=== PATIENT | female | born 1945 | race Caucasian/White ===

== ENCOUNTER → 2017-01-07 | Outpatient (CLI) | payer OTHER | LOC: FIMAGING 07:55 | PROVIDERS: ATTEND Obstetrics & Gynecology | DX: Z12.31 Encounter for screening mammogram for malignant neoplasm of breast (principal) | CPT/HCPCS: G0202 ==

== ENCOUNTER → 2018-01-15 | Outpatient (CLI) | payer OTHER | LOC: FIMAGING 07:07 | PROVIDERS: ATTEND Internal Medicine | DX: Z12.31 Encounter for screening mammogram for malignant neoplasm of breast (principal); Z80.3 Family history of malignant neoplasm of breast ==

== ENCOUNTER → 2018-06-19 | Outpatient (CLI) | payer OTHER | LOC: FIMAGING 18:54 | PROVIDERS: ATTEND Internal Medicine | DX: R41.3 Other amnesia (principal) | CPT/HCPCS: 70551-PN ==

== ENCOUNTER → 2018-07-03 | Outpatient (CLI) | payer OTHER ==
[~2018-07-03] MED LIST: GADOBUTROL 10 ML VIAL IVP ONE
== END ==
LOC: FIMAGING 06:37
PROVIDERS: ATTEND Internal Medicine
DX: R93.0 Abnormal findings on diagnostic imaging of skull and head, not elsewhere classified (principal); F03.90 Unspecified dementia, unspecified severity, without behavioral disturbance, psychotic disturbance, mood disturbance, and anxiety; R41.3 Other amnesia
CPT/HCPCS: 70553; A9585

== ENCOUNTER → 2018-08-18 | Outpatient (CLI) | payer OTHER ==
--- NOTE | 2018-08-19 12:52 | CPEEG ---
[f rep st] ELECTROENCEPHALOGRAM DATE OF STUDY: 08/18/2018 DATE OF INTERPRETATION: August 19, 2018 INTERPRETATION: This 4-hour video EEG recording is abnormal due to the following reasons: 1. There were probable, rare potentially epileptogenic abnormalities over the left temporal head regions. 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 2. There was a mild degree of focal slowing over the left temporal head region. These findings would be consistent with a mild focal disturbance of cerebral function in these regions. The patient did not have any clinical events during this video EEG monitor session. I attempted to contact the patient multiple times regarding these findings and left a detailed voicemail to call our office back. REPORT: This 4-hour video EEG contains 10 Hz alpha activity to the posterior head regions. There was a mild degree of focal slowing over the left temporal head region consisting of fairly persistent polymorphic theta slowing. There was no abnormal epileptiform activation at rest, during photic stimulation or hyperventilation. The patient became drowsy and fell asleep during the study. During drowsiness and sleep, there were rare left temporal spikes and sharp waves. For an example, see epoch 194 and epoch 1153. The patient did not have any clinical events during the EEG monitoring session. /[id number]/MODL MTDD
== END ==
LOC: FCPNEURO 10:25
PROVIDERS: ATTEND Psychiatry & Neurology Neurology
DX: R41.3 Other amnesia (principal)